=== PATIENT | male | born 1950 | race Asian ===

== ENCOUNTER 2019-02-16 12:00 | Day surgery (SDC) | payer MEDICARE, OTHER ==
[~2019-02-16] VITALS: Ht 165.1 cm; Wt 55.9 kg
[~2019-02-16 12:00] MED LIST: ASPI325T32 PO; CLOP75TA19 PO; LOSA100T3 PO; METO-429 PO; PROSTATE MED; SIMV40TA3 PO; STOMACH MED PO; ZOLP10TA5 PO
[2019-02-16 13:22] VITALS: Ht 165.1 cm; Wt 55.9 kg
[2019-02-16 14:14] VITALS: BP 157/84; PULSE 86; RESP 17
[2019-02-16] MEDS ORDERED: PROPOFOL 20 ML ONE (14:17)
[2019-02-16 15:20] VITALS: BP 141/75; RESP 29
== END 2019-02-16 15:18 | disposition home or self-care (01) ==
LOC: GIL 12:00
PROVIDERS: ATTEND Internal Medicine Gastroenterology
DX: R19.4 Change in bowel habit (principal); K64.8 Other hemorrhoids; K57.30 Diverticulosis of large intestine without perforation or abscess without bleeding; D12.5 Benign neoplasm of sigmoid colon; K44.9 Diaphragmatic hernia without obstruction or gangrene; K21.9 Gastro-esophageal reflux disease without esophagitis
CPT/HCPCS: 88305